=== PATIENT | female | born 1990 | race Caucasian/White ===

== ENCOUNTER 2019-03-22 09:53 | Emergency (ER) | payer BC ==
[~2019-03-22] VITALS: Ht 175.3 cm; Wt 71.2 kg
--- NOTE | 2019-03-22 10:10 | NUR ---
ED Nurse Note: PT WALKED IN TO ER TODAY FROM HOME. AOX4. PT C/O RIGHT SIDED KNEE PAIN, 6/10 AT REST BUT 10/10 WITH ACTIVITY X 3 DAYS AGO AFTER SOMEONE LANDED ON HER KNEE WHILE PLAYING FOOTBALL. FULL ROM OF RIGHT KNEE, ANKLE, AND DIGITS. CIRCULATION AND SENSATION INTACT, CAP REFILL <3 SECONDS, MUSCLE STRENGTH 5/5, AND SKIN INTACT.
--- NOTE | 2019-03-22 10:59 | NUR ---
ED Nurse Note: XRAY AT BEDSIDE.
--- NOTE | 2019-03-22 11:14 | Emergency Room Report ---
History of Present Illness General Chief Complaint: Lower Extremity Injury Source: Patient Present Illness HPI Patient is a 28-year-old female presented after increased right knee pain. Patient reports having pain to the medial aspect of her right knee. This had occurred after injury playing football on turf. She reportedly had been injured with force to the lateral aspect of her right knee against the turf. She denies any other locations of pain right now. Allergies: Coded Allergies: ERYTHROMYCIN BASE (Verified Allergy, Unknown, 03/22/19) SULFISOXAZOLE (Verified Allergy, Unknown, 03/22/19) Patient History Past Medical History: see triage record Last Menstrual Period: 02/06/19 Now: No Reviewed Nursing Documentation: PMH: Agreed; PSxH: Agreed Nursing Documentation-PMH Past Medical History: No History, Except For Hx Cardiac Problems: No - tonsilectomy age 3 Review of Systems All Other Systems: negative except mentioned in HPI Physical Exam Vital Signs Date Time Temp Pulse Resp B/P (MAP) Pulse Ox O2 Delivery O2 Flow Rate FiO2 03/22/19 10:01 97.5 71 16 118/78 96 Room Air General Appearance: well appearing, no apparent distress, alert, GCS 15 Head: normocephalic, atraumatic ENT: hearing grossly normal, normal voice Neck: full range of motion, supple Respiratory: no respiratory distress, speaking full sentences Cardiovascular #1: normal inspection Gastrointestinal: normal inspection Musculoskeletal: decreased range of mation, swelling, other - slight laxity with medial stress, pain with grind test, no laxity with anterior drawer Neurologic: normal inspection, alert, oriented x3, responsive, stem sizer III-XII nml as tested, normal gait Psychiatric: mood/affect normal Skin: no rash Medical Decision Making Diagnostic Impression: Primary Impression: Medial collateral ligament sprain of knee ER Course Patient presented for knee pain. Differential diagnosis included was not limited to popliteal aneurysm, arthritis, dislocation, ligamentous injury, septic joint among others. X-ray imaging of the right knee was ordered due to patient's recent traumatic injury. X-ray imaging of the right knee 4 views showed normal bony alignment without evident fracture. Patient was placed in Domenico wrap and given crutches. She was given prescription for anti-inflammatory medications. Patient was to follow-up with orthopedics for further evaluation and treatment. Last Vital Signs Date Time Temp Pulse Resp B/P (MAP) Pulse Ox O2 Delivery O2 Flow Rate FiO2 03/22/19 10:01 97.5 71 16 118/78 96 Room Air Status: improved Disposition: HOME, SELF-CARE Condition: Stable Scripts Acetaminophen* (ACETAMINOPHEN EXTRA STRENGTH*) 500 Mg Tablet 500 MG ORAL Q8H PRN for Fever/Headache/Mild Pain, #30 TAB Prov: Geovanni Edwards MD 03/22/19 Ibuprofen* (MOTRIN*) 600 Mg Tablet 600 MG ORAL Q8H PRN for For Pain, #30 TAB 0 Refills Prov: Geovanni Edwards MD 03/22/19 Geovanni Edwards MD Mar 22, 2019 11:14
[2019-03-22] MEDS ORDERED: ACETAMINOPHEN500 M3 ORAL (11:17)
[2019-03-22] MEDS ORDERED: IBUPROFEN600 MG ORAL (11:17)
--- NOTE | 2019-03-22 11:26 | NUR ---
ED Nurse Note: PT PROVIDED WITH CRUTCHES AND EDUCATED ON PROPER USE OF ASSISTIVE DEVICE. PT ABLE TO DEMONSTRATE BACK PROPER USE OF ASSISTIVE DEVICE.
[2019-03-22 11:30] VITALS: BP 122/84
--- NOTE | 2019-03-22 11:30 | NUR ---
ED Nurse Note: PT SITTING PEACEFULLY IN BED IN NAD. AOX4. PRESCRIPTION AND DISCHARGE PAPERWORK EXPLAINED TO PT. PT VERBALIZES UNDERSTANDING AND ALL QUESTIONS ANSWERED. PRESCRIPTION AND DISCHARGE PAPERWORK GIVEN TO PT AND ID WRISTBAND REMOVED. PT WALKED OUT OF ER WITH STEADY GAIT AND PROPER CRUTCHES USE AND ALL BELONGINGS.
--- NOTE | 2019-03-22 12:03 | Diagnostic Imaging Report ---
Indication: Pain Knee pain/trauma 3 views of the right knee were obtained. Findings: No acute fracture, malalignment, or joint effusion are identified. Joint space is relatively well-maintained. Impression: Negative for acute findings.
== END 2019-03-22 11:30 | disposition home or self-care (01) ==
LOC: EMR 11:15
DX: S83.411A Sprain of medial collateral ligament of right knee, initial encounter (principal); X58.XXXA Exposure to other specified factors, initial encounter; Y93.61 Activity, american tackle football; Y92.9 Unspecified place or not applicable; Z88.8 Allergy status to other drugs, medicaments and biological substances
CPT/HCPCS: 99283